=== PATIENT | male | born 1975 | race American Indian/Alaskan Native ===

== ENCOUNTER 2020-01-13 09:39 | Emergency (ER) | payer SELFPAY ==
--- NOTE | 2020-01-13 10:54 | Emergency Department Report ---
ED Extremity Problem HPI - General Chief complaint: Extremity Injury, Lower Stated complaint: LEFT FOOT CUT Time Seen by Provider: 01/13/20 10:36 Source: patient Mode of arrival: Ambulatory Limitations: No Limitations - History of Present Illness Initial comments: 44-year-old -[place] male presents to the emergency room for left foot laceration and possible glass in foot. Patient states he thinks he has stepped on glass a week ago when a glass table had fallen. Patient states that he thought he is gotten everything out but pain is worse. Patient denies any drainage. Patient denies any fever chills. MD Complaint: extremity pain Onset/Timin -: week(s) Location: left, other (foot) History of Same: No -: No myalgia, No arthralgia, No fever, No associated dyspnea, No associated chest pain Severity scale (0 -10): 10 Quality: stabbing, aching, sharp Consistency: constant Improves with: nothing Worsens with: weight bearing, walking Associated Symptoms: denies other symptoms - Related Data Previous Rx's Medication Instructions Recorded Last Taken Type cephALEXin [Keflex] 500 mg PO Q12HR 7 Days #14 cap 01/13/20 Unknown Rx Allergies Allergy/AdvReac Type Severity Reaction Status Date / Time No Known Allergies Allergy Unverified 01/13/20 09:42 ED Review of Systems ROS: Stated complaint: LEFT FOOT CUT Other details as noted in HPI Comment: All other systems reviewed and negative ED Past Medical Hx - Past Medical History Previous Medical History?: Yes Hx Asthma: Yes - Surgical History Past Surgical History?: Yes Additional Surgical History: right femur fracture - Social History Smoking Status: Current Every Day Smoker Substance Use Type: Alcohol - Medications Home Medications: Home Medications Medication Instructions Recorded Confirmed Last Taken Type cephALEXin [Keflex] 500 mg PO Q12HR 7 Days #14 cap 01/13/20 Unknown Rx ED Physical Exam - General Limitations: No Limitations General appearance: alert, in no apparent distress - Head Head exam: Present: atraumatic, normocephalic - Eye Eye exam: Present: normal appearance - ENT ENT exam: Present: mucous membranes moist - Expanded Lower Extremity Exam Left Foot/Toe exam: Present: full ROM, tenderness, puncture wound, foreign body. Absent: swelling, erythema Neuro vascular tendon exam: Present: no vascular compromise - Back Exam Back exam: Present: normal inspection, full ROM - Neurological Exam Neurological exam: Present: alert, oriented X3 - Psychiatric Psychiatric exam: Present: normal affect, normal mood ED Course Vital Signs 01/13/20 09:44 Temperature 98.2 F Pulse Rate 100 H Respiratory 15 Rate Blood Pressure 123/89 O2 Sat by Pulse 98 Oximetry ED Medical Decision Making - Radiology Data Radiology results: report reviewed Findings [facility] [address] [place] [address] XRay Report Signed Patient: AKILA YUSUF MR#: [id number] : 1975 Acct:[id number] Age/Sex: 44 / M ADM Date: 01/13/20 Loc: ED Attending Dr: Ordering Physician: LAKSHMI BRAUN Date of Service: 01/13/20 Procedure(s): XR foot 2V LT Accession Number(s): [id number] cc: LAKSHMI BRAUN Fluoro Time In Minutes: LEFT FOOT 3 VIEW(S) INDICATION / CLINICAL INFORMATION: stepped on glass 1 week COMPARISON: None available. FINDINGS: BONES / JOINT(S): No acute fracture or subluxation. No significant arthritis. SOFT TISSUES: No significant abnormality. No radiopaque foreign body. ADDITIONAL FINDINGS: None. Signer Name: Carol Villalpando MD Signed: 01/13/2020 11:18 AM Workstation Name: [id number] Transcribed By: DT Dictated By: Sean Villalpando MD Electronically Authenticated By: Sean Villalpando MD Signed Date/Time: 01/13/20 1118 DD/ 1113 TD/TT: - Medical Decision Making 44-year-old -[place] male presents to the emergency room for left foot laceration and possible glass in foot. Patient states he thinks he has stepped on glass a week ago when a glass table had fallen. Patient states that he thought he is gotten everything out but pain is worse. Patient denies any drainage. Patient denies any fever chills. X-ray has been ordered for left foot concern for foreign object. Critical care attestation.: If time is entered above; I have spent that time in minutes in the direct care of this critically ill patient, excluding procedure time. ED Disposition Clinical Impression: Foot pain, left, Laceration of foot Disposition: DC- TO HOME OR SELFCARE Is pt being admited?: No Does the pt Need Aspirin: No Condition: Stable Additional Instructions: Complete antibiotics as prescribed. Pain medication as needed. Please do foot soaks as this will help with the pain. Prescriptions: cephALEXin [Keflex] 500 mg PO Q12HR 7 Days #14 cap Referrals: PRIMARY CARE, [Primary Care Provider] - 3-5 Days [facility] [Provider Group] - 3-5 Days
--- NOTE | 2020-01-13 11:23 | XRay Report ---
LEFT FOOT 3 VIEW(S) INDICATION / CLINICAL INFORMATION: stepped on glass 1 week COMPARISON: None available. FINDINGS: BONES / JOINT(S): No acute fracture or subluxation. No significant arthritis. SOFT TISSUES: No significant abnormality. No radiopaque foreign body. ADDITIONAL FINDINGS: None. Signer Name: Carol Villalpando MD Signed: 01/13/2020 11:18 AM Workstation Name: [id number]
[2020-01-13] MEDS ORDERED: LIDOCAINE-MPF (1%) 10 MG/1 ML VIAL 5 ML INFILTRATI ONE (13:09)
== END 2020-01-13 14:06 | disposition home or self-care (01) ==
LOC: ED 09:39
DX: S91.312A Laceration without foreign body, left foot, initial encounter (principal); J45.909 Unspecified asthma, uncomplicated; F17.200 Nicotine dependence, unspecified, uncomplicated; W25.XXXA Contact with sharp glass, initial encounter; Y93.89 Activity, other specified; Y92.89 Other specified places as the place of occurrence of the external cause; Y99.8 Other external cause status